=== PATIENT | female | born 1985 | race African-American/Black ===

== ENCOUNTER 2018-06-27 08:00 | Emergency (ER) | payer OTHER ==
[~2018-06-27] VITALS: Ht 157.5 cm; Wt 66.4 kg
[2018-06-27] MEDS ORDERED: BUPIVACAINE HCL/PF 0.25% 10 ML VIAL INJ ONE (09:00)
[2018-06-27 10:20] VITALS: BP 116/72
== END 2018-06-27 10:33 | disposition home or self-care (01) ==
LOC: EMS 08:02
DX: N75.0 Cyst of Bartholin's gland (principal)
CPT/HCPCS: 56420; 99283; J3490

== ENCOUNTER 2018-06-30 18:16 | Emergency (ER) | payer OTHER ==
[~2018-06-30] VITALS: Ht 157.5 cm; Wt 66.4 kg
[2018-06-30] MEDS ORDERED: SULF1TAB41 PO (18:28)
[2018-06-30 18:47] VITALS: BP 99/70
== END 2018-06-30 19:24 | disposition home or self-care (01) ==
LOC: EMS 18:19
DX: N75.0 Cyst of Bartholin's gland (principal); Z48.01 Encounter for change or removal of surgical wound dressing

== ENCOUNTER 2019-06-30 17:49 | Emergency (ER) | payer OTHER ==
[~2019-06-30] VITALS: Ht 157.5 cm; Wt 67.3 kg
[~2019-06-30 17:49] MED LIST: SULF1TAB41 PO
[2019-06-30 18:34] VITALS: BP 123/78
== END 2019-06-30 20:45 | disposition left against medical advice (07) ==
LOC: EMS 17:51
DX: S61.211A Laceration without foreign body of left index finger without damage to nail, initial encounter (principal); W45.8XXA Other foreign body or object entering through skin, initial encounter; Y93.89 Activity, other specified; Y92.89 Other specified places as the place of occurrence of the external cause; Y99.8 Other external cause status; Z53.21 Procedure and treatment not carried out due to patient leaving prior to being seen by health care provider